=== PATIENT | male | born 2000 | race Caucasian/White ===

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

== ENCOUNTER 2019-03-28 20:49 | Emergency (ER) | payer SELFPAY ==
[~2019-03-28] VITALS: Ht 172.7 cm; Wt 59.5 kg
[~2019-03-28 20:49] MED LIST: HYDR-3601 PO
[2019-03-28 20:57] VITALS: BP 131/79; PULSE 54; RESP 19; Ht 172.7 cm; Wt 59.5 kg
== END 2019-03-29 02:00 | disposition left against medical advice (07) ==
LOC: E/R 20:49
DX: Z53.21 Procedure and treatment not carried out due to patient leaving prior to being seen by health care provider (principal)